=== PATIENT | female | born 1990 | race Caucasian/White ===

== ENCOUNTER 2020-01-09 21:14 | Emergency (ER) | payer BC, OTHER ==
[2020-01-09] MEDS ORDERED: Sodium Chloride 0.9% 1000 ML 1,000 ML IV STA (22:20)
[2020-01-09 22:47] LABS: Absolute Neutrophil Ct (ANC) 5.68 (1.4-6.9); BASOPHIL % 0.4 % (0.0-0.4); Basophil (Absolute #) 0.03 (0-0.4); Eosinophil % 0.6 % (0.00-5.0); Eosinophil (Absolute #) 0.05 (0-0.5); Hemoglobin 11.5 gm/dl (12.0-16.0); Lymphocyte (Absolute #) 1.94 (1.0-4.6); Mean Cell Volume 85.3 fl (78-100); Mean Corpuscular Hemoglobin 26.5 pg (26-32); Mean Corpuscular Hgb Concent. 31.1 g/dl (32-36); Mean Platelet Volume 11.7 fl (7.5-11.0); Monocyte (Absolute #) 0.72 (0.0-1.3); Monocytes % 8.6 % (0.0-12.0); Neutrophil % 67.4 % (36.0-66.0); Platelet Count 246 K/mm3 (150-450); Red Blood Count 4.34 M/mm3 (4.1-5.4); Red Cell Distribution Width 14.2 % (11.5-14.0); White Blood Count 8.4 K/mm3 (4.0-10.5)
[2020-01-09 23:00] LABS: Appearance CLOUDY (CLEAR); Bilirubin NEGATIVE (NEGATIVE); Blood LARGE Ery/ul (0-5); Glucose NEGATIVE (NEGATIVE); Ketones NEGATIVE (NEGATIVE); Leukocyte Esterase NEGATIVE (NEGATIVE); Nitrite NEGATIVE (NEGATIVE); Protein,Urine Dip >=500 (Negative); Specific Gravity 1.022 (1.005-1.025); Urobilinogen NEGATIVE mg/dL (0-1); WBC 0-2 /HPF (0-5)
[2020-01-09 23:04] LABS: ALBUMIN 4.3 g/dL (3.5-5.0); ALKALINE PHOSPHATASE 52 U/L (38-126); ANION GAP 10.9 MEQ/L (5-15); BLOOD UREA NITROGEN 10 mg/dL (7-17); CHLORIDE 105 mmol/L (98-107); Calcium 9.4 mg/dL (8.4-10.2); Carbon Dioxide 26 mmol/L (22-30); Creatinine 1 0.79 mg/dL (0.52-1.04); EST GLOMERULAR FILTRATION RATE > 60.0 ML/MIN; Glucose 104 mg/dL (74-106); Potassium 4.2 mmol/L (3.5-5.1); SGOT/AST 30 U/L (14-36); SGPT/ALT 33 U/L (0-35); SODIUM 137 mmol/L (137-145); Total Protein 7.2 g/dL (6.3-8.2)
[2020-01-09 23:05] LABS: RBC >101 /HPF (0-2)
[2020-01-09] MEDS ORDERED: Sodium Chloride 0.9% 1000 ML 1,000 ML ONE (23:09)
--- NOTE | 2020-01-09 23:12 | ERPHSYRPT ---
- History of Present Illness Time Seen by Provider: 01/09/20 21:35 Source: patient Exam Limitations: no limitations Patient Subjective Stated Complaint: pt to ER with complaints of vaginal bleeding. pt was seen at [facility] yesterday afternoon. bled some then, then didnt have any bleeding until this evening where she has saturated 2 pads. pt states some clots. pt states aprox 6 weeks. Triage Nursing Assessment: pt ambulatory. A&Ox4. pt skin pwd. Physician History: Patient is a 29-year-old female G2, P1 currently 6 weeks 2 days presents to our ED for evaluation of significant vaginal bleeding. Patient states she is passing large clots and bleeding through 2 pads per hour. Patient states that vaginal bleeding started yesterday. However it resolved. Patient followed up with her [employer] doctor. Labs were ordered and she currently has a pelvic ultrasound scheduled for today. However this evening vaginal bleeding became significantly worse. Patient became very concerned and presented to our ED. No associated shortness of breath. No dizziness. No nausea. No chest pain. Vaginal bleeding is associated with vague intermittent pelvic cramping. Patient denies fever. No trauma. Patient voiced no other complaints or concerns at this time. Timing/Duration: today, yesterday Severity: moderate Modifying Factors: Improves With: nothing Associated Symptoms: No nausea, No vomiting, No shortness of breath, No heartburn, No diaphoresis, No cough, No fever, No headaches, No loss of appetite, No malaise, No rash, No syncope, No seizure, No weakness Allergies/Adverse Reactions: clarithromycin [From Biaxin] Allergy (Verified 01/09/20 21:33) sumatriptan Allergy (Verified 01/09/20 21:33) Hx Tetanus, Diphtheria Vaccination/Date Given: Yes Hx Influenza Vaccination/Date Given: Yes Hx Pneumococcal Vaccination/Date Given: No Immunizations Up to Date: Yes Travel Risk - International Travel Have you traveled outside of the country in past 3 weeks: No - Coronavirus Screening Are you exhibiting any of the following symptoms?: No Close contact with a COVID-19 positive Pt in past 14-21 Days: No - Review of Systems Constitutional: No Symptoms, No Fever, No Chills Eyes: No Symptoms Ears, Nose, & Throat: No Symptoms Respiratory: No Symptoms, No Cough, No Dyspnea Cardiac: No Symptoms, No Chest Pain, No Edema, No Syncope Abdominal/Gastrointestinal: No Symptoms, No Abdominal Pain, No Nausea, No Vomiting, No Diarrhea Genitourinary Symptoms: No Symptoms, No Dysuria Musculoskeletal: No Symptoms, No Back Pain, No Neck Pain Skin: No Symptoms, No Rash Neurological: No Symptoms, No Dizziness, No Focal Weakness, No Sensory Changes Psychological: No Symptoms Endocrine: No Symptoms Hematologic/Lymphatic: No Symptoms Immunological/Allergic: No Symptoms All Other Systems: Reviewed and Negative - Past Medical History Pertinent Past Medical History: No - Past Surgical History Past Surgical History: No - Social History Smoking Status: Never smoker Exposure to second hand smoke: No Drug Use: none Patient Lives Alone: No - Female History Hx Last Menstrual Period: 11/25/2019 Hx Now: Yes - Nursing Vital Signs Nursing Vital Signs: Initial Vital Signs Temperature 98.9 F 01/09/20 21:25 Pulse Rate 89 01/09/20 21:25 Respiratory Rate 15 01/09/20 21:25 Blood Pressure 127/74 01/09/20 21:25 O2 Sat by Pulse Oximetry 99 01/09/20 21:25 Pain Scale Pain Intensity 0 - Physical Exam General Appearance: no apparent distress, alert Eye Exam: PERRL/EOMI, eyes nml inspection Ears, Nose, Throat Exam: normal ENT inspection, TMs normal, pharynx normal, moist mucous membranes Neck Exam: normal inspection, non-tender, supple, full range of motion Respiratory Exam: normal breath sounds, lungs clear, No respiratory distress Cardiovascular Exam: regular rate/rhythm, normal heart sounds, normal peripheral pulses Gastrointestinal/Abdomen Exam: soft, normal bowel sounds, No tenderness, No mass Pelvic Exam: normal external exam, vaginal bleeding, other (Considerable blood in vaginal vault. Otherwise no active bleeding. Pain or tenderness.), No adnexal tenderness, No adnexal mass, No mass, No cervical motion tenderness, No uterine tenderness Back Exam: normal inspection, normal range of motion, No CVA tenderness, No vertebral tenderness Extremity Exam: normal inspection, normal range of motion, pelvis stable Neurologic Exam: alert, oriented x 3, cooperative, normal mood/affect, nml cerebellar function, nml station & gait, sensation nml, No motor deficits Skin Exam: normal color, warm, dry, No rash Lymphatic Exam: No adenopathy SpO2 Interpretation: normal SpO2: 96 O2 Delivery: Room Air - Radiology Ultrasound Exam OB Ultrasound: tele radiology report (Per guide dog instructor patient is a 5 week i day IUP gestational there is a small amount of fluid in the cul-de-sac ovaries not visualized no active bleeding) Ordered Tests: Active Orders 24 hr Category Date Time Status IV Insertion STAT Care 01/09/20 22:20 Active Pelvic Exam Assist STAT Care 01/09/20 22:20 Active OB <14 WKS 1ST GESTATION [US] Stat Exams 01/09/20 22:22 Taken CBC W DIFF Stat Lab 01/09/20 22:35 Completed CMP Stat Lab 01/09/20 22:35 Completed CULTURE,URINE Stat Lab 01/09/20 22:15 Received HCG, Quantitative (Inhouse) Stat Lab 01/09/20 22:35 Completed UA W/RFX UR CULTURE Stat Lab 01/09/20 22:15 Completed Wet Prep Stat Lab 01/10/20 00:20 Ordered Medication Summary Discontinued Medications Generic Name Dose Route Start Last Admin Trade Name Freq PRN Reason Stop Dose Admin Sodium Chloride 1,000 mls @ 999 mls/hr 01/09/20 22:20 01/09/20 23:10 Sodium Chloride 0.9% 1000 Ml IV 01/09/20 23:20 999 mls/hr .Q1H1M STA Administration Sodium Chloride Confirm 01/09/20 23:09 Sodium Chloride 0.9% 1000 Ml Administered 01/09/20 23:10 Dose 1,000 mls @ ud .ROUTE .STK-MED ONE Lab/Rad Data: Laboratory Result Diagrams 01/09/20 22:35 01/09/20 22:35 Laboratory Results 01/09/20 01/09/20 01/09/20 Range/Units 22:35 22:35 22:35 WBC (4.0-10.5) K/mm3 RBC (4.1-5.4) M/mm3 Hgb (12.0-16.0) gm/dl Hct (35-47) % MCV (78-100) fl MCH (26-32) pg MCHC (32-36) g/dl RDW (11.5-14.0) % Plt Count (150-450) K/mm3 MPV (7.5-11.0) fl Gran % (36.0-66.0) % Eos # (Auto) (0-0.5) Absolute Lymphs (auto) (1.0-4.6) Absolute Monos (auto) (0.0-1.3) Lymphocytes % (24.0-44.0) % Monocytes % (0.0-12.0) % Eosinophils % (0.00-5.0) % Basophils % (0.0-0.4) % Absolute Granulocytes (1.4-6.9) Basophils # (0-0.4) Sodium 137 (137-145) mmol/L Potassium 4.2 (3.5-5.1) mmol/L Chloride 105 (98-107) mmol/L Carbon Dioxide 26 (22-30) mmol/L Anion Gap 10.9 (5-15) MEQ/L BUN 10 (7-17) mg/dL Creatinine 0.79 (0.52-1.04) mg/dL Estimated GFR > 60.0 ML/MIN Glucose 104 (74-106) mg/dL Calcium 9.4 (8.4-10.2) mg/dL Total Bilirubin 0.40 (0.2-1.3) mg/dL AST 30 (14-36) U/L ALT 33 (0-35) U/L Alkaline Phosphatase 52 (38-126) U/L Serum Total Protein 7.2 (6.3-8.2) g/dL Albumin 4.3 (3.5-5.0) g/dL Beta HCG, Quant 7113.8 mIU/ml Urine Color (YELLOW) Urine Appearance (CLEAR) Urine pH (5-6) Ur Specific [place] (1.005-1.025) Urine Protein (Negative) Urine Ketones (NEGATIVE) Urine Blood (0-5) Lionel/ul Urine Nitrite (NEGATIVE) Urine Bilirubin (NEGATIVE) Urine Urobilinogen (0-1) mg/dL Ur Leukocyte Esterase (NEGATIVE) Urine WBC (Auto) (0-5) /HPF Urine RBC (Auto) (0-2) /HPF U Epithel Cells (Auto) (FEW) /HPF Urine Bacteria (Auto) (NEGATIVE) /HPF Urine Culture Reflexed (NO) Urine Glucose (NEGATIVE) mg/dL ABO Group AB Rh Factor POSITIVE Antibody Screen NEGATIVE (NEGATIVE) 01/09/20 01/09/20 Range/Units 22:35 22:15 WBC 8.4 (4.0-10.5) K/mm3 RBC 4.34 (4.1-5.4) M/mm3 Hgb 11.5 L (12.0-16.0) gm/dl Hct 37.0 (35-47) % MCV 85.3 (78-100) fl MCH 26.5 (26-32) pg MCHC 31.1 L (32-36) g/dl RDW 14.2 H (11.5-14.0) % Plt Count 246 (150-450) K/mm3 MPV 11.7 H (7.5-11.0) fl Gran % 67.4 H (36.0-66.0) % Eos # (Auto) 0.05 (0-0.5) Absolute Lymphs (auto) 1.94 (1.0-4.6) Absolute Monos (auto) 0.72 (0.0-1.3) Lymphocytes % 23.0 L (24.0-44.0) % Monocytes % 8.6 (0.0-12.0) % Eosinophils % 0.6 (0.00-5.0) % Basophils % 0.4 (0.0-0.4) % Absolute Granulocytes 5.68 (1.4-6.9) Basophils # 0.03 (0-0.4) Sodium (137-145) mmol/L Potassium (3.5-5.1) mmol/L Chloride (98-107) mmol/L Carbon Dioxide (22-30) mmol/L Anion Gap (5-15) MEQ/L BUN (7-17) mg/dL Creatinine (0.52-1.04) mg/dL Estimated GFR ML/MIN Glucose (74-106) mg/dL Calcium (8.4-10.2) mg/dL Total Bilirubin (0.2-1.3) mg/dL AST (14-36) U/L ALT (0-35) U/L Alkaline Phosphatase (38-126) U/L Serum Total Protein (6.3-8.2) g/dL Albumin (3.5-5.0) g/dL Beta HCG, Quant mIU/ml Urine Color RED (YELLOW) Urine Appearance CLOUDY (CLEAR) Urine pH 7.0 (5-6) Ur Specific [place] 1.022 (1.005-1.025) Urine Protein >=500 (Negative) Urine Ketones NEGATIVE (NEGATIVE) Urine Blood LARGE (0-5) Lionel/ul Urine Nitrite NEGATIVE (NEGATIVE) Urine Bilirubin NEGATIVE (NEGATIVE) Urine Urobilinogen NEGATIVE (0-1) mg/dL Ur Leukocyte Esterase NEGATIVE (NEGATIVE) Urine WBC (Auto) 0-2 (0-5) /HPF Urine RBC (Auto) >101 (0-2) /HPF U Epithel Cells (Auto) NONE (FEW) /HPF Urine Bacteria (Auto) NONE (NEGATIVE) /HPF Urine Culture Reflexed YES (NO) Urine Glucose NEGATIVE (NEGATIVE) mg/dL ABO Group Rh Factor Antibody Screen (NEGATIVE) - Progress Progress: improved Progress Note: 01/09/20 23:59 Patient reassessed. She is pain-free. No active vaginal bleeding. No dizziness or shortness of breath. Patient states that the vaginal bleeding has significantly slowed down. Ultrasound shows a 5-week gestational sac. Beta quant is 7100. Patient is Rh+. No indication for RhoGam. Hemoglobin 11.5. No previous hemoglobin values available to compare to. Patient's [employer] physician is Dr. Morejon from [place]. Patient requesting discharge.. Will discharge home. Patient agrees to follow-up with her [employer] doctor within 48 hours for reevaluation. 01/10/20 00:01 01/10/20 00:01 01/10/20 00:03 Counseled pt/family regarding: lab results, diagnosis, need for follow-up, rad results - Departure Departure Disposition: Home Clinical Impression: Threatened miscarriage in early , Vaginal bleeding Condition: Stable Critical Care Time: No Referrals: TOMAS ARNDT [Primary Care Provider] - SKYLAR MOREJON MD [CONSULTING PHYSICIAN] - Additional Instructions: Discharge/Care Plan JACOB CHANG was seen on 01/10/20 in the Emergency Room. The patient was counseled regarding Diagnosis,Lab results, Imaging studies, need for follow up and when to return to the Emergency Room. Prescriptions given: Discharge Note I have spoken with the patient and/or caregivers. I have explained the patient's condition, diagnosis and treatment plan based on the information available to me at this time. I have answered the patient's and/or caregiver's questions and addressed any concerns. The patient and/or caregivers have as good understanding of the patient's diagnosis, condition and treatment plan as can be expected at this point. The vital signs have been stable. The patient's condition is stable and appropriate for discharge from the emergency department. The patient will pursue further outpatient evaluation with the primary care physician or other designated or consulting physician as outlined in the discharge instructions. The patient and/or caregivers are agreeable to this plan of care and follow-up instructions have been explained in detail. The patient and/or caregivers have received these instruction. The patient/and or caregivers are aware that any significant change in condition or worsening of symptoms should prompt an immediate return to this or the closest emergency department or call 911.
[2020-01-09 23:24] LABS: ABO TYPING AB; Antibody Screen NEGATIVE (NEGATIVE); RH TYPING POSITIVE
[2020-01-10 00:27] VITALS: BP 138/87
[2020-01-10 00:38] LABS: Bacteria Rare; Clue Cells None Seen; Red Blood Cells Many; Trichomonas None Seen; White Blood Cells Rare; Yeast None Seen
[2020-01-10 01:11] VITALS: PULSE 79; O2SAT 97
[2020-01-10 01:59] LABS: CHLAMYDIA DNA NOT DETECTED (NEGATIVE); GC DNA Probe NOT DETECTED (NEGATIVE)
--- NOTE | 2020-01-10 08:50 | XRAY ---
Indication: Bleeding. Two-dimensional transvaginal early OB ultrasound performed. Comparison: None Uterus is anteverted measuring 7.3 x 4.4 x 4.9 cm. There is a single intrauterine gestational sac with mean sac diameter measuring 0.59 cm corresponding to 5 weeks 1 day. No pole or heart tones presumed early . Neither ovaries visualized. No suspicious adnexal mass or free fluid. Impression: Single intrauterine gestational sac without pole/heart tones presumed early . Correlate with serial beta hCG and follow-up sonogram regarding viability. Comment: Preliminary report was given.
== END 2020-01-10 01:11 | disposition home or self-care (01) ==
LOC: ED 21:14
DX: O20.0 Threatened abortion (principal); Z3A.01 Less than 8 weeks gestation of pregnancy
CPT/HCPCS: 36000; 36415; 76801; 80053; 81001; 84702; 85025; 86850; 86900; 86901; 87086; 87210; 87491; 87591; 96360; 99284

== ENCOUNTER 2021-09-26 08:39 | Emergency (ER) | payer BC ==
[2021-09-26] MEDS ORDERED: PROTONIX 40 MG IV IV ONE ×2 (09:32→09:40)
[2021-09-26] MEDS ORDERED: Zofran 4 MG/2 ML VIAL IV ONE (09:32)
[2021-09-26] MEDS ORDERED: Sodium Chloride 0.9% 1000 ML 1,000 ML IV STA (09:32)
[2021-09-26] MEDS ORDERED: Pepcid 20 MG VIAL IV ONE ×2 (09:32→09:40)
--- NOTE | 2021-09-26 09:32 | ERPHSYRPT ---
- History of Present Illness Time Seen by Provider: 09/26/21 09:27 Historian: patient, family Exam Limitations: no limitations Patient Subjective Stated Complaint: PT HER FOR EPIGASTRIC PAIN STARTED ABOUT 0300 TODAY, WITH NAUSEA AND VOMITING, NO FEVER Triage Nursing Assessment: PT ALERT, RESP EASY, SKIN W/D/P, FACE MASK IN PLACE ABD SOFT,TENDER TO TOUCH TO EPIGASTRIC AREA, SHE IS 10 DAYS POST WITH A TUBAL, VAGINAL DELIVERY , Physician History: is is 10 days post tubal ligation following normal vag delivery but has epigastric pain rad to back, and bulge in left mid abd. some spotting. some tenderness on exam RUQ. and LLQ. No vag drainage or fevers. Discussed imaging US then CT and she concurs. No urinary symptoms but some N/V. umb wound without drainage erythema or tenderness or swelling. Timing/Duration: hour(s), sudden Activities at Onset: none Quality: sharpness Abdominal Pain Onset Location: RUQ, LLQ Pain Radiation: back Severity of Pain-Max: moderate Severity of Pain-Current: moderate Modifying Factors: Improves With: nothing Associated Symptoms: back, nausea, vomiting Previous symptoms: no prior history Allergies/Adverse Reactions: clarithromycin [From Biaxin] Allergy (Verified 09/26/21 08:56) sumatriptan Allergy (Verified 09/26/21 08:56) Home Medications: Ketorolac Trometh 10 mg Tab [TORAdol 10 MG TABLET] 1 ea DAILY 09/26/21 [History] Hx Tetanus, Diphtheria Vaccination/Date Given: Yes Hx Influenza Vaccination/Date Given: Yes Hx Pneumococcal Vaccination/Date Given: No Immunizations Up to Date: Yes Travel Risk - International Travel Have you traveled outside of the country in past 3 weeks: No - Coronavirus Screening Are you exhibiting any of the following symptoms?: No Close contact with a COVID-19 positive Pt in past 14-21 Days: No - Vaccine Status Have you recieved a Covid-19 vaccination: Yes 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 - Review of Systems Constitutional: No Fever, No Chills Eyes: No Symptoms Ears, Nose, & Throat: No Symptoms Respiratory: No Cough, No Dyspnea Cardiac: No Chest Pain, No Edema, No Syncope Abdominal/Gastrointestinal: Abdominal Pain, Nausea, Vomiting, No Diarrhea Genitourinary Symptoms: No Dysuria Musculoskeletal: Back Pain, No Neck Pain, No Fall Skin: No Symptoms, No Rash Neurological: No Dizziness, No Focal Weakness, No Sensory Changes Psychological: No Symptoms Endocrine: No Symptoms Hematologic/Lymphatic: No Symptoms Immunological/Allergic: No Symptoms All Other Systems: Reviewed and Negative - Past Medical History Pertinent Past Medical History: No - Past Surgical History Past Surgical History: No - Social History Smoking Status: Never smoker Exposure to second hand smoke: Yes Drug Use: none Patient Lives Alone: No - Female History Hx Last Menstrual Period: UNSURE Hx Now: No - Nursing Vital Signs Nursing Vital Signs: Initial Vital Signs Temperature 96.8 F 09/26/21 08:48 Pulse Rate 64 09/26/21 08:48 Respiratory Rate 16 09/26/21 08:48 Blood Pressure 127/62 09/26/21 08:48 O2 Sat by Pulse Oximetry 97 09/26/21 08:48 Pain Scale Pain Intensity 4 - Physical Exam General Appearance: no apparent distress, alert Eye Exam: PERRL/EOMI, eyes nml inspection Ears, Nose, Throat Exam: normal ENT inspection, pharynx normal, moist mucous membranes Neck Exam: normal inspection, non-tender, supple, full range of motion Respiratory Exam: normal breath sounds, lungs clear, No respiratory distress Cardiovascular Exam: regular rate/rhythm, normal heart sounds Gastrointestinal/Abdomen Exam: soft, tenderness (RUQ and LLQ ), No mass Pelvic Exam: deferred Rectal Exam: deferred Back Exam: normal inspection, normal range of motion, No CVA tenderness, No vertebral tenderness Extremity Exam: normal inspection, normal range of motion, pelvis stable Neurologic Exam: alert, oriented x 3, cooperative, normal mood/affect, nml cerebellar function, sensation nml, No motor deficits Skin Exam: normal color, warm, dry SpO2 Interpretation: normal SpO2: 97 O2 Delivery: Room Air - Course Nursing assessment & vital signs reviewed: Yes EKG Interpreted by Me: Sinus Rhythm, Sinus Tomer, NORMAL AXIS, NORMAL INTERVALS, NORMAL QRS, Non-specific ST Changes - CT Exams Abdomen/Pelvis CT Interpretation: Tele-radiologist Report, Normal Appendix, No appendicitis, Other (left lung granuloma, Right hydroneph, Left necrotic fat from diastasis - no bowel.. ) - Radiology Ultrasound Exam Pelvis Ultrasound: No Torsion/Nml Flow, hydronephrosis, Other (uterine fluid and clots no obvious infection or retained POC per rad) Ordered Tests: Active Orders 24 hr Category Date Time Status EKG-ER Only STAT Care 09/26/21 09:32 Active IV Insertion STAT Care 09/26/21 09:32 Active ABDOMEN AND PELVIS W/0 CONTRAS [CT] Stat Exams 09/26/21 09:43 Taken PELVIS TRANS VAGINAL [US] Stat Exams 09/26/21 10:53 Taken AMYLASE Stat Lab 09/26/21 09:49 Completed CBC W DIFF Stat Lab 09/26/21 09:49 Completed CMP Stat Lab 09/26/21 09:49 Completed CULTURE,URINE Stat Lab 09/26/21 09:49 Received HCG QUALITATIVE,SERUM Stat Lab 09/26/21 09:49 Completed LIPASE Stat Lab 09/26/21 09:49 Completed Lactic Acid Stat Lab 09/26/21 09:49 Completed TROPONIN Q3H Lab 09/26/21 09:49 Completed UA W/RFX CULTURE Stat Lab 09/26/21 09:49 Completed Medication Summary Discontinued Medications Generic Name Dose Route Start Last Admin Trade Name Cr PRN Reason Stop Dose Admin Famotidine 20 mg 09/26/21 09:32 09/26/21 09:41 Famotidine 20 Mg/1 Vial IV 09/26/21 09:33 20 mg STAT ONE Administration Famotidine Confirm 09/26/21 09:40 Famotidine 20 Mg/1 Vial Administered 09/26/21 09:41 Dose 20 mg IV .STK-MED ONE Sodium Chloride 1,000 mls @ 999 mls/hr 09/26/21 09:32 09/26/21 11:14 Sodium Chloride 0.9% 1000 Ml IV 09/26/21 10:32 Infused .Q1H1M STA Infusion Sodium Chloride Confirm 09/26/21 09:40 Sodium Chloride 0.9% 1000 Ml Administered 09/26/21 09:41 Dose 1,000 mls @ ud .ROUTE .STK-MED ONE Ceftriaxone Sodium/Dextrose 1 g in 50 mls @ 100 mls/hr 09/26/21 11:16 09/26/21 11:55 Rocephin 1 Gm-D5w 50 Ml Bag IV 09/26/21 11:45 100 mls/hr STAT STA 100 mls/hr Administration Ceftriaxone Sodium/Dextrose Confirm 09/26/21 11:53 Rocephin 1 Gm-D5w 50 Ml Bag Administered 09/26/21 11:54 Dose 1 g in 50 mls @ ud IV .STK-MED ONE Ketorolac Tromethamine 30 mg 09/26/21 09:36 09/26/21 09:41 Ketorolac Tromethamine 30 Mg/Ml Inj IV 09/26/21 09:37 30 mg STAT ONE Administration Ketorolac Tromethamine Confirm 09/26/21 09:40 Ketorolac Tromethamine 30 Mg/Ml Inj Administered 09/26/21 09:41 Dose 30 mg .ROUTE .STK-MED ONE Ondansetron HCl 4 mg 09/26/21 09:32 09/26/21 09:41 Ondansetron Hcl 4 Mg/2 Ml Vial IV 09/26/21 09:33 4 mg STAT ONE Administration Ondansetron HCl Confirm 09/26/21 09:40 Ondansetron Hcl 4 Mg/2 Ml Vial Administered 09/26/21 09:41 Dose 4 mg .ROUTE .STK-MED ONE Pantoprazole Sodium 40 mg 09/26/21 09:32 09/26/21 09:42 Pantoprazole 40 Mg Vial IV 09/26/21 09:33 40 mg STAT ONE Administration Pantoprazole Sodium Confirm 09/26/21 09:40 Pantoprazole 40 Mg Vial Administered 09/26/21 09:41 Dose 40 mg IV .STK-MED ONE Lab/Rad Data: Laboratory Result Diagrams 09/26/21 09:49 09/26/21 09:49 Laboratory Results 09/26/21 09/26/21 09/26/21 Range/Units 09:49 09:49 09:49 WBC (4.0-10.5) x10^3/uL RBC (4.1-5.4) x10^6/uL Hgb (12.0-16.0) g/dL Hct (35-47) % MCV (78-100) fL MCH (26-32) pg MCHC (32-36) g/dL RDW (11.5-14.0) % Plt Count (150-450) x10^3/uL MPV (7.5-11.0) fL Gran % (36.0-66.0) % Immature Gran % (Auto) (0.00-0.4) % Nucleat RBC Rel Count (0.00-0.1) % Eos # (Auto) (0-0.5) x10^3/uL Immature Gran # (Auto) (0.00-0.03) x10^3u/L Absolute Lymphs (auto) (1.0-4.6) x10^3/uL Absolute Monos (auto) (0.0-1.3) x10^3/uL Absolute Nucleated RBC (0.00-0.01) x10^3u/L Lymphocytes % (24.0-44.0) % Monocytes % (0.0-12.0) % Eosinophils % (0.00-5.0) % Basophils % (0.0-0.4) % Absolute Granulocytes (1.4-6.9) x10^3/uL Basophils # (0-0.4) x10^3/uL Sodium (137-145) mmol/L Potassium (3.5-5.1) mmol/L Chloride (98-107) mmol/L Carbon Dioxide (22-30) mmol/L Anion Gap (5-15) MEQ/L BUN (7-17) mg/dL Creatinine (0.52-1.04) mg/dL Estimated GFR ML/MIN Glucose (74-106) mg/dL Lactic Acid (0.4-2.0) Calcium (8.4-10.2) mg/dL Total Bilirubin (0.2-1.3) mg/dL AST (14-36) U/L ALT (0-35) U/L Alkaline Phosphatase (38-126) U/L Troponin I < 0.012 (0.000-0.034) ng/mL Serum Total Protein (6.3-8.2) g/dL Albumin (3.5-5.0) g/dL Amylase (30-110) U/L Lipase (23-300) U/L Serum , Qual POSITIVE (Negative) Urinalys Dipstick Clnc MAIN LAB Urine Color YELLOW (YELLOW) Urine Appearance SLIGHTLY CLOUDY (CLEAR) Urine pH 8.0 (5-6) Ur Specific Rogers 1.020 (1.005-1.025) POC Urine Protein Conf NEGATIVE (Negative) Urine Ketones NEGATIVE (NEGATIVE) Urine Nitrite NEGATIVE (NEGATIVE) Urine Bilirubin NEGATIVE (NEGATIVE) Urine Urobilinogen 1 (0-1) mg/dL Urine Leukocytes LARGE (NEGATIVE) Urine WBC (Auto) 51-100 (0-5) /HPF Urine RBC (Auto) 3-5 (0-2) /HPF U Epithel Cells (Auto) RARE (FEW) /HPF Urine Bacteria (Auto) MODERATE (NEGATIVE) /HPF Urine RBC MODERATE (0-5) Lionel/ul Urine Mucus (Auto) SLIGHT (NEGATIVE) /HPF Ur Culture Indicated? YES Urine Glucose NEGATIVE (NEGATIVE) mg/dL 09/26/21 09/26/21 09/26/21 Range/Units 09:49 09:49 09:49 WBC 11.0 H (4.0-10.5) x10^3/uL RBC 4.00 L (4.1-5.4) x10^6/uL Hgb 10.0 L (12.0-16.0) g/dL Hct 32.4 L (35-47) % MCV 81.0 (78-100) fL MCH 25.0 L (26-32) pg MCHC 30.9 L (32-36) g/dL RDW 13.2 (11.5-14.0) % Plt Count 301 (150-450) x10^3/uL MPV 11.9 H (7.5-11.0) fL Gran % 89.9 H (36.0-66.0) % Immature Gran % (Auto) 0.6 H (0.00-0.4) % Nucleat RBC Rel Count 0.0 (0.00-0.1) % Eos # (Auto) 0.01 (0-0.5) x10^3/uL Immature Gran # (Auto) 0.07 H (0.00-0.03) x10^3u/L Absolute Lymphs (auto) 0.66 L (1.0-4.6) x10^3/uL Absolute Monos (auto) 0.35 (0.0-1.3) x10^3/uL Absolute Nucleated RBC 0.00 (0.00-0.01) x10^3u/L Lymphocytes % 6.0 L (24.0-44.0) % Monocytes % 3.2 (0.0-12.0) % Eosinophils % 0.1 (0.00-5.0) % Basophils % 0.2 (0.0-0.4) % Absolute Granulocytes 9.93 H (1.4-6.9) x10^3/uL Basophils # 0.02 (0-0.4) x10^3/uL Sodium 140 (137-145) mmol/L Potassium 4.1 (3.5-5.1) mmol/L Chloride 108 H (98-107) mmol/L Carbon Dioxide 23 (22-30) mmol/L Anion Gap 13.3 (5-15) MEQ/L BUN 14 (7-17) mg/dL Creatinine 0.69 (0.52-1.04) mg/dL Estimated GFR > 60.0 ML/MIN Glucose 124 H (74-106) mg/dL Lactic Acid 1.4 (0.4-2.0) Calcium 9.2 (8.4-10.2) mg/dL Total Bilirubin 0.90 (0.2-1.3) mg/dL AST 341 H (14-36) U/L ALT 159 H (0-35) U/L Alkaline Phosphatase 253 H (38-126) U/L Troponin I (0.000-0.034) ng/mL Serum Total Protein 6.2 L (6.3-8.2) g/dL Albumin 3.4 L (3.5-5.0) g/dL Amylase 56 (30-110) U/L Lipase 117 (23-300) U/L Serum , Qual (Negative) Urinalys Dipstick Clnc Urine Color (YELLOW) Urine Appearance (CLEAR) Urine pH (5-6) Ur Specific Rogers (1.005-1.025) POC Urine Protein Conf (Negative) Urine Ketones (NEGATIVE) Urine Nitrite (NEGATIVE) Urine Bilirubin (NEGATIVE) Urine Urobilinogen (0-1) mg/dL Urine Leukocytes (NEGATIVE) Urine WBC (Auto) (0-5) /HPF Urine RBC (Auto) (0-2) /HPF U Epithel Cells (Auto) (FEW) /HPF Urine Bacteria (Auto) (NEGATIVE) /HPF Urine RBC (0-5) Lionel/ul Urine Mucus (Auto) (NEGATIVE) /HPF Ur Culture Indicated? Urine Glucose (NEGATIVE) mg/dL - Progress Progress: improved, re-examined Progress Note: 09/26/21 12:[address] Pompa who would like US GB and feels hernia is OK for DC if no acute feliap seen on US. and will f/u in office / gonzalez other Dr.s Pompa. 09/26/21 13:35 US could not perform an US for GB as Dr. Pompa had wanted, so we have been waiting for him to call back and confirm this is OK for him. This has required additional time due to demand for him in OR. 09/26/21 13:41 Dr. Pompa will eval pt in ER now. 09/26/21 14:12 Kolton Pompa evaluated in ER and agrees pt OK for outpt f/u and this is what patient chooses rather than in house admit/eval and will try PO outpt. and has the capacity to make this choice. Discussed with DrElle: Bang Will see patient in: ED (Kolton Pompa will come to eval pt in ER. ), office Counseled pt/family regarding: lab results, diagnosis, need for follow-up, rad results - Departure Departure Disposition: Home Clinical Impression: lect abdominal diastasis with necrotic f, left lung granuloma; Left abd fat hernia, Hydronephrosis of right kidney, Distended gall bladder, Gall bladder disease Condition: Good Critical Care Time: No Referrals: LUCIO DONOHUE NP [Primary Care Provider] - Follow up/PCP as directed SHAMIR POMPA MD [ACTIVE STAFF] - Follow up/PCP as directed Instructions: Acute Abdomen (Belly Pain), Adult (DC), Abdominal Hernia (DC), Urinary Tract Infection, Adult (DC), Hydronephrosis, Adult (DC), Gallstones (DC), Gallstones Additional Instructions: followup with your General Dentist and other Drs. as planned - Dr. Pompa for Gall bladder and hernia. Urinary infection and kidney with your regular Dr. We are giving info for gallstones but it may be another gall bladder malfunction. Do clear liquids today and then advance diet as tolerated. return meantime if not improving or any symptoms of concern. Prescriptions: Ondansetron ODT 4 MG [Zofran Odt 4 mg] 4 mg PO Q6H PRN PRN #10 tablet PRN Reason: Nausea Cephalexin Mh 500 mg [Keflex 500 mg] 500 mg PO TID #30 cap
[2021-09-26] MEDS ORDERED: TORAdol 30 mg Injection IV ONE (09:36)
[2021-09-26] MEDS ORDERED: TORAdol 30 mg Injection ONE (09:40)
[2021-09-26] MEDS ORDERED: Sodium Chloride 0.9% 1000 ML 1,000 ML ONE (09:40)
[2021-09-26] MEDS ORDERED: Zofran 4 MG/2 ML VIAL ONE (09:40)
[2021-09-26 09:55] LABS: Absolute Neutrophil Ct (ANC) 9.93 x10^3/uL (1.4-6.9); Basophil (Absolute #) 0.02 x10^3/uL (0-0.4); Eosinophil % 0.1 % (0.00-5.0); Eosinophil (Absolute #) 0.01 x10^3/uL (0-0.5); Hematocrit 32.4 % (35-47); Lymphocyte (Absolute #) 0.66 x10^3/uL (1.0-4.6); Mean Corpuscular Hgb Concent. 30.9 g/dL (32-36); Mean Platelet Volume 11.9 fL (7.5-11.0); Monocyte (Absolute #) 0.35 x10^3/uL (0.0-1.3); Monocytes % 3.2 % (0.0-12.0); Neutrophil % 89.9 % (36.0-66.0); Platelet Count 301 x10^3/uL (150-450); Red Cell Distribution Width 13.2 % (11.5-14.0)
[2021-09-26 10:01] LABS: Appearance SLIGHTLY CLOUDY (CLEAR); Bilirubin NEGATIVE (NEGATIVE); Glucose NEGATIVE (NEGATIVE); Ketones NEGATIVE (NEGATIVE); RBC MODERATE Ery/ul (0-5)
[2021-09-26 10:02] LABS: Bacteria MODERATE /HPF (NEGATIVE); Dipstick done @ ? MAIN LAB; Epithelial Cells RARE /HPF (FEW); Mucus SLIGHT /HPF (NEGATIVE); Nitrite NEGATIVE (NEGATIVE); Protein,Urine Dip NEGATIVE (Negative); Urobilinogen 1 mg/dL (0-1); WBC 51-100 /HPF (0-5)
[2021-09-26 10:03] LABS: ALBUMIN 3.4 g/dL (3.5-5.0); ALKALINE PHOSPHATASE 253 U/L (38-126); AMYLASE 56 U/L (30-110); ANION GAP 13.3 MEQ/L (5-15); BLOOD UREA NITROGEN 14 mg/dL (7-17); CHLORIDE 108 mmol/L (98-107); Calcium 9.2 mg/dL (8.4-10.2); Carbon Dioxide 23 mmol/L (22-30); Creatinine 1 0.69 mg/dL (0.52-1.04); EST GLOMERULAR FILTRATION RATE > 60.0 ML/MIN; Glucose 124 mg/dL (74-106); LIPASE 117 U/L (23-300); Potassium 4.1 mmol/L (3.5-5.1); SGOT/AST 341 U/L (14-36); SGPT/ALT 159 U/L (0-35); SODIUM 140 mmol/L (137-145); Total Protein 6.2 g/dL (6.3-8.2); Urine Cultured Indicated? YES
[2021-09-26] MEDS ORDERED: ROCEPHIN 1 Gm-D5w 50 ml Bag** 1 G/50 ML IVPB IV STA (11:16)
[2021-09-26] MEDS ORDERED: ROCEPHIN 1 Gm-D5w 50 ml Bag** 1 G/50 ML IVPB IV ONE (11:53)
[2021-09-26 14:12] VITALS: BP 147/73; PULSE 47
[2021-09-26 14:16] VITALS: O2SAT 97
--- NOTE | 2021-09-26 21:00 | XRAY ---
Indication: Abdomen pain, nausea, and vomiting. Status post recent . Multiple contiguous axial images obtained through the abdomen and pelvis without contrast. Comparison: None Lung bases demonstrates tiny bibasilar effusions and tiny left base calcified granuloma. Heart not enlarged. Noncontrasted stomach and bowel loops appear nonobstructed with normal appendix. Enlarged uterus consistent with recent gravid status. Moderate-sized periumbilical ventral hernia with herniated omental fat and fluid. Gallbladder highly distended without gallstones or biliary distention. Remaining liver, pancreas, spleen, adrenal glands, kidneys, ureters, bladder, and aorta appear unremarkable for noncontrast exam. Osseous structures intact with mild degenerative changes throughout the thoracic spine. Impression: 1. Periumbilical ventral hernia with herniated omental fat and fluid. 2. Enlarged uterus consistent with recent gravid status. 3. Mildly distended gallbladder without gallstones. Gallbladder sonogram may yield further information if clinical warranted. 4. Incidental tiny bibasilar effusions without cardiomegaly. Comment: Preliminary interpretation made by C. No critical discrepancy.
--- NOTE | 2021-09-26 21:03 | XRAY ---
Indication: Pain. 10 days . Two-dimensional transvaginal pelvic sonogram performed. Comparison: None Uterus is prominent measuring 13.6 x 5.9 x 7.4 cm consistent with recent gravid status. No focal solid/cystic uterine mass. Endometrial cavity demonstrates fluid collection measuring 8.5 x 0.6 x 3.2 cm with a few low-level echoes, possible blood products. Neither ovaries are visualized. No suspicious adnexal mass or free fluid. Impression: Enlarged uterus consistent with recent gravid status. Endometrial fluid may represent possible blood products. Nonvisualization of both ovaries. Comment: Preliminary report was given.
--- NOTE | 2021-09-28 11:18 | CONS ---
CONSULT DATE: 09/26/2021 REASON FOR CONSULT: Abdominal pain. HISTORY: This patient presents with acute onset of abdominal pain that started suddenly at about 3 a.m. this morning. It was in the upper abdomen. She thought it was heartburn. Her pain was so bad she then developed nausea and vomiting afterwards. She was seen in the emergency room department and evaluated. She does say that she had several other of these attacks during her . They are usually at 3:00 in the morning and she has not really associated them with any particular type of food and this attack was more severe that it prompted her to go to the emergency room. She has just recently had a vaginal delivery. She denies any other complaints. REVIEW OF SYSTEMS: Negative except for in the history of present illness. All other systems reviewed. PAST MEDICAL HISTORY: Vaginal delivery. PAST SURGICAL HISTORY: Tubal. MEDICATIONS: See JUN. ALLERGIES: REVIEWED. SEE MAR. SOCIAL HISTORY: No tobacco. FAMILY HISTORY: Noncontributory. PHYSICAL EXAMINATION: GENERAL: No acute distress. HEENT: Sclera nonicteric. Extraocular movements intact. NECK: Supple. No JVD. CHEST: Nonlabored breathing. ABDOMEN: Soft, nondistended, mildly tender in the epigastrium. Moderate sized incarcerated hernia left inferior periumbilical region that is mildly tender. No guarding, rebound or any signs of peritonitis. EXTREMITIES: No peripheral edema. NEURO: Awake, alert, oriented. PSYCH: Appropriate mood and affect. LAB DATA AND TESTS: CT scan reviewed and I personally reviewed the images. The official read mentioned fat in diastasis with possible necrosis of the fat. On my personal review of the imaging, this is clearly an incisional ventral hernia probably from her tubal with a clear fascial defect with incarcerated omentum with some edema around the omentum. There does not appear to be any other pathology on CT scan. Laboratory studies were unremarkable except for some mildly elevated liver function tests including AST, ALT and alkaline phosphatase being slightly elevated. Her bilirubin is 0.9 within normal limits. ASSESSMENT AND PLAN: 1) Abdominal pain. 2) Incarcerated incisional ventral hernia with omentum. I do not think that the hernia is what brought her into the emergency room. She is not particularly tender in this area and her symptoms were not of any pain or complaints for that area in the abdomen. Her symptoms were all upper abdomen as to why she came to the emergency room. I did discuss the findings with her and the presence of this hernia and that I would like her to have this repaired electively at some point and that is probably from the incision from her tubal. I think her other symptoms are probably from her gallbladder. Ultrasound is unavailable today in the emergency room. I discussed the option of admitting her into the hospital for further work up with ultrasound and possible cholecystectomy if indicated. However, the patient feels much better. Her pain has basically subsided and I think is it quite reasonable to trial her on diet and have her follow up for further outpatient work up for her gallbladder and this ventral hernia repair. The patient would like to see our challenge and follow up as outpatient.
== END 2021-09-26 14:49 | disposition home or self-care (01) ==
LOC: ED 08:39
DX: M62.08 Separation of muscle (nontraumatic), other site (principal); J84.10 Pulmonary fibrosis, unspecified; K43.6 Other and unspecified ventral hernia with obstruction, without gangrene; N13.30 Unspecified hydronephrosis; K82.9 Disease of gallbladder, unspecified; R10.13 Epigastric pain; R11.2 Nausea with vomiting, unspecified; R10.11 Right upper quadrant pain; R10.32 Left lower quadrant pain
CPT/HCPCS: 36000; 36415; 74176; 76830; 80053; 81015; 81025; 82150; 83605; 83690; 84484; 85025; 87086; 93005; 96360; 96365; 96374; 96375; 99285; J0696; J1885; J2405